=== PATIENT | male | born 2000 | race African-American/Black ===

== ENCOUNTER 2022-02-22 23:51 | Emergency (ER) | payer OTHER, SELFPAY ==
[2022-02-23] MEDS ORDERED: Morphine 4 MG/ML VIAL ONE (00:38)
[2022-02-23] MEDS ORDERED: Ketorolac Tromethamine 30 MG/ML VIAL ONE (00:39)
== END 2022-02-23 00:53 | disposition home or self-care (01) ==
LOC: CSHERS 23:51
DX: K02.9 Dental caries, unspecified (principal); K03.81 Cracked tooth
CPT/HCPCS: 96372; 99282; J1885; J2270